=== PATIENT | male | born 1965 | race Caucasian/White ===

== ENCOUNTER → 2016-11-25 | Outpatient (CLI) | payer BC, OTHER ==
[~2016-11-25] MED LIST: LISI-729 PO; METF-383 PO; PRLSR20 PO; SIMV40TA2 PO
[2016-11-25 18:44] LABS: ALT/SGPT 46 U/L (12-78); BLOOD UREA NITROGEN 10 mg/dl (7-18); BUN/CREATININE RATIO 8.3 (10-20); CARBON DIOXIDE 23 mmol/L (21-32); CHLORIDE 104 mmol/L (98-107); GLUCOSE 222 mg/dl (70-99); POTASSIUM 4.2 mmol/L (3.5-5.1); SODIUM 137 mmol/L (136-145)
[2016-11-25 18:49] LABS: CALCIUM 9.2 mg/dl (8.5-10.1)
[2016-11-26 06:21] LABS: ESTIMATED AVERAGE GLUCOSE 212 mg/dl; HA1C FLAG Normal (Normal)
== END | disposition home or self-care (01) ==
LOC: C.LABMFLN 07:42
PROVIDERS: ATTEND Family Medicine
DX: Z00.00 Encounter for general adult medical examination without abnormal findings (principal); E11.9 Type 2 diabetes mellitus without complications; E78.00 Pure hypercholesterolemia, unspecified

== ENCOUNTER → 2017-03-21 | Outpatient (CLI) | payer BC | END | disposition home or self-care (01) | LOC: C.LABMFLN 11:38 | PROVIDERS: ATTEND Physician Assistant | DX: J02.9 Acute pharyngitis, unspecified (principal) ==

== ENCOUNTER → 2017-07-18 | Outpatient (CLI) | payer BC ==
[2017-07-18 13:45] LABS: ESTIMATED AVERAGE GLUCOSE 128 mg/dl; HA1C FLAG Normal (Normal)
[2017-07-18 13:49] LABS: ALT/SGPT 53 U/L (12-78); BLOOD UREA NITROGEN 11 mg/dl (7-18); BUN/CREATININE RATIO 12.3 (10-20); CALCIUM 8.9 mg/dl (8.5-10.1); CARBON DIOXIDE 24 mmol/L (21-32); CHLORIDE 105 mmol/L (98-107); CREATININE 0.89 mg/dl (0.60-1.40); GLUCOSE 133 mg/dl (70-99); POTASSIUM 4.3 mmol/L (3.5-5.1); SODIUM 136 mmol/L (136-145)
[2017-07-18 14:02] LABS: CREATININE RANDOM URINE 15.2 mg/dl
== END | disposition home or self-care (01) ==
LOC: C.LABMFLN 09:31
PROVIDERS: ATTEND Family Medicine
DX: E11.9 Type 2 diabetes mellitus without complications (principal)

== ENCOUNTER → 2017-08-29 | Outpatient (CLI) | payer BC | END | disposition home or self-care (01) | LOC: C.LABMFLN 09:07 | PROVIDERS: ATTEND Physician Assistant | DX: T14.8XXA Other injury of unspecified body region, initial encounter (principal); W57.XXXA Bitten or stung by nonvenomous insect and other nonvenomous arthropods, initial encounter ==

== ENCOUNTER 2020-05-11 11:06 | Observation (INO) ==
[2020-05-11] MEDS ORDERED: OPTIRAY 320 125ml IV ONE (11:27)
--- NOTE | 2020-05-11 11:27 | CT Scan Report ---
CT head/brain wo con CLINICAL HISTORY: Stroke Alert LEFT-SIDED WEAKNESS. COMPARISON STUDY: No previous studies for comparison. TECHNIQUE: Axial CT of the brain is performed from the vertex to the skull base. IV contrast was not administered for this examination. A dose lowering technique was utilized adhering to the principles of ALARA. CT DOSE: 537.48 mGy.cm FINDINGS: No intra or extra-axial mass lesions are visualized. There is no CT evidence of acute cortical infarc tion. There is no evidence of midline shift. There is no acute hemorrhage. No calvarial fractures ar e visualized. There is no evidence of pathologic ventricular dilatation. There is no evidence of acute sinusitis. There is sphenoid sinus mucosal thickening. IMPRESSION: No acute intracranial findings ACT 112: Negative or not required by law. Electronically signed by: Shreyas Guthrie M.D. 05/11/2020 11:26 AM
--- NOTE | 2020-05-11 11:34 | CT Scan Report ---
CT angio neck with con CLINICAL HISTORY: Left-sided weakness. Possible acute stroke. COMPARISON STUDY: No previous studies for comparison. TECHNIQUE: CT angiography was performed from the aortic arch to the skull base. MIP imaging was perfo rmed. The patient was scanned in a dynamic helical fashion during intravenous administration of 120 c c of Optiray 320. A dose lowering technique was utilized adhering to the principles of ALARA. CT DOSE: 697.07 mGy.cm Technique: CT angiogram of the carotid and vertebral arteries was obtained using intravenous contrast and 3-D reconstruction. NASCET criteria was utilized. Findings: The right carotid revealed no evidence of aneurysm and no evidence of dissection. There is no evidenc e of hemodynamic significant stenosis. The left carotid revealed no evidence of hemodynamic significant stenosis. There is no evidence of an eurysm. There is no evidence of dissection. There is no evidence of hemodynamically significant vertebral stenosis. There is no evidence of verte bral dissection. IMPRESSION: No evidence of hemodynamically significant carotid or vertebral artery stenosis. No evidence of disse ction. ACT 112: Negative or not required by law. Electronically signed by: Shreyas Guthrie M.D. 05/11/2020 11:33 AM
--- NOTE | 2020-05-11 11:38 | CT Scan Report ---
CT angio head w con CLINICAL HISTORY: Left-sided weakness. Possible acute stroke. TECHNIQUE: CT angiography of the head was performed in a dynamic helical fashion during intravenous a dministration of 120 cc of Optiray 320. MIP imaging was performed. A dose lowering technique was util ized adhering to the principles of ALARA. CT DOSE: COMPARISON STUDY: Noncontrast head CT dated 05/11/2020 FINDINGS: There are no lesion suspicious for aneurysm. There are no major intracranial branch occlusi ons. The dural venous sinuses appear patent. There is a hypoplastic right A1 segment. IMPRESSION: 1. Hypoplastic right A1 segment. Otherwise unremarkable CT angiography the brain ACT 112: Negative or not required by law. Electronically signed by: Shreyas Guthrie M.D. 05/11/2020 11:37 AM
--- NOTE | 2020-05-11 11:39 | Emergency Department Note ---
Impression & Plan Cerebrovascular accident, Arm weakness ED Provider Note NAME: CTAIE BURGOS Jr AGE: 55 SEX: M : 1965 ARRIVES VIA: Walk-In INFORMANT: Patient ED PROVIDER(S): Marlo Tellez DO CHIEF COMPLAINT: Left sided weakness HPI: Patient is a 55-year-old male who presents the ER for left-sided weakness. 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 He became dizzy. He started having numbness in his left foot which traveled up his leg. He then proceeded i nto his arm. He was having difficulty standing. Patient was unable to pull cheese apart and unable to hold dishes. They proceeded here. He denies any chest pain, shortness of breath, belly pain, nausea, vomiting or diarrhea. No other exacerbating or remitting factors. Denies any hematuria, hematemesis, hemoptysis recent surgery or trauma. Did have previous trauma in 2009 had a brain bleed at that time. ROS: See above HPI for pertinent positives & negatives. A total of 10 systems reviewed and were otherwise negative. PAST MEDICAL HISTORY:See Below PAST SURGICAL HISTORY:See Below FAMILY HISTORY:See Below SOCIAL HISTORY:See Below HOME MEDICATIONS:See Below ALLERGIES:See Below VITALS:See Below PHYSICAL EXAMINATION: GENERAL: Sitting up in bed, alert, disheveled. Anxious EYE EXAM: normal conjunctiva. PERRL and EOM's intact. OROPHARYNX: no exudate, no erythema, lips, buccal mucosa, and tongue normal and mucous membranes are moist NECK: supple, no nuchal rigidity, no adenopathy, non-tender LUNGS: Clear to auscultation. Normal chest wall mechanics HEART: no murmurs, S1 normal and S2 normal ABDOMEN: abdomen soft, non-tender, normo-active bowel sounds, no masses, no rebound or guarding. BACK: Back is symmetrical on inspection and there is no deformity, no midline tenderness, no CVA tenderness. SKIN: no rashes and no bruising UPPER EXTREMITIES: upper extremities are grossly normal. LOWER EXTREMITIES: No pitting edema. NEURO EXAM: Normal sensorium, cranial nerves II-XII intact, normal speech, weakness with grasp and flexion-extension of left upper extremity. Right upper extremity 5 out of 5. [id number] is intact. Decreased sensation throughout the left side. Mild weakness with flexion of the left hip. 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 On day 15 started with numbness in the left lower extremity, weakness as well as numbness and weakness in left upper extremity. Conversation IV was established blood work was obtained. Stroke alert was called. Labs showed no significant leukocytosis or anemia. INR was unremarkable. BMP was fairly unremarkable with exception of a slightly elevated glucose. Magnesium LFTs and bilirubin was unremarkable. Stroke alert was called from triage. She was taken directly to CT. When he returned to the room I evaluated him. Discussed with [facility] stroke neurology. 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 He does not believe it is worth the risk. With this in mind he was given aspirin and Plavix loading dose. Prolonged conversation with [facility] neurolog[facility]. The patient actually wanted to leave but after prolonged conversation was agreeable to staying for complete stroke work-up. Triage Nursing notes reviewed. Prior medical records reviewed Vital Signs: reviewed and remarkable for no significant abnormalities Differential diagnosis: Differential Diagnosis includes but is not limited to ischemic Stroke, hemorrhagic stroke, bells palsy, mass, neoplasm, migraine headache, seizure, subarachnoid hemorrhage, TIA, and transient global amnesia. ER treatment provided: See below Diagnostics interpreted by me: ECG: Sinus rhythm rate of 70 DWI lead III No PVCs Normal QTC Cardiac Monitoring: An order was placed for continuous cardiac monitoring. The monitor shows a rate of 74 with sinus rhythm. Laboratory studies: As stated above and show below. Imaging studies: CT head as well as angios head and neck show no acute occlusions Consultation(s): [facility] neurolog[facility] recommended aspirin Plavix as the patient declined TPA. Discussed with Dr. Janine Rojas for further evaluation. ED COURSE: Procedures: none Critical Care: I have personally spent 32 minutes of critical care time in the direct management of this patient. This includes bedside care, interpretation of diagnostic studies, and testing, discussion with consultants, patient, and family members, and other required patient management activities. This 32 minutes is in excess of all separately billable procedures. Past Med/Surg History Medical History (Updated 05/11/20 @ 14:04 by Marlo Tellez DO) Diabetes Hyperlipidemia Hypertension Surgical History No significant past surgical history Family History (Updated 12/18/19 @ 09:11 by Carolee Burroughs MA) Mother Heart disease Diabetes Hypertension Dyslipidemia Social History Smoking Status: Current every day smoker Preferred Language: [place] marital status: Current Living Situation: Spouse current occupational status: employed Feels Safe at Home: Yes Allergies Allergies Allergy/AdvReac Type Severity Reaction Status Date / Time No Known Allergies Allergy Unverified 05/11/20 11:28 Home Meds Home Medications Medication Instructions Recorded Confirmed atorvastatin 80 mg PO QAM 05/11/20 05/11/20 glipizide 10 mg PO QAM 05/11/20 05/11/20 lisinopril 20 mg PO QAM 05/11/20 05/11/20 metformin 1,000 mg PO BID 05/11/20 05/11/20 omeprazole 20 mg PO DAILY PRN 05/11/20 05/11/20 varenicline [Chantix] 1 mg PO BID 05/11/20 05/11/20 Previous Rx's Medication Instructions Recorded sildenafil 100 mg tablet 100 mg PO DAILY PRN #2 tab 02/20/20 Results & Data (ED) Vital Signs Vital Signs - 24 hr 05/11/20 11:11 05/11/20 11:13 05/11/20 11:30 Temperature 37.2 C Temperature Source Oral Pulse Rate 82 80 Pulse Rate from SpO2 Sensor 73 Respiratory Rate 20 Respiratory Effort / Characteristics Non-Labored Respiratory Depth Normal Respiratory Pattern Regular Blood Pressure 136/85 177/85 H Blood Pressure Mean 102 98 Blood Pressure Position Sitting Pulse Oximetry 96 97 98 Oxygen Delivery Method Room Air Room Air Sepsis Recent Fever Within 48 Hours No Sepsis New/Unexplained Change in Mental Status No Sepsis Action Taken by Nursing No Action Required 05/11/20 11:44 05/11/20 13:00 Temperature Temperature Source Pulse Rate 75 68 Pulse Rate from SpO2 Sensor 76 Respiratory Rate 17 13 Respiratory Effort / Characteristics Respiratory Depth Respiratory Pattern Blood Pressure 150/83 H 128/85 Blood Pressure Mean 97 96 Blood Pressure Position Pulse Oximetry 97 Oxygen Delivery Method Sepsis Recent Fever Within 48 Hours Sepsis New/Unexplained Change in Mental Status Sepsis Action Taken by Nursing Laboratory Data Result diagrams: 05/11/20 11:54 05/11/20 11:35 Lab Results 05/11/20 05/11/20 05/11/20 Range/Units 11:27 11:35 11:35 WBC Cancelled RBC Cancelled Hgb Cancelled Hct Cancelled MCV Cancelled MCH Cancelled MCHC Cancelled RDW Std Deviation Cancelled RDW Coeff of Radha Cancelled Plt Count Cancelled MPV Cancelled Absolute Nucleated RBC Cancelled Nucleated RBC % (auto) Cancelled Platelet Estimate Cancelled PT 10.6 (9.0-12.0) Seconds INR 1.0 (0.9-1.1) APTT 27.9 (21.0-31.0) Seconds PTT Ratio 1.0 Sodium (136-145) mmol/L Potassium (3.5-5.1) mmol/L Chloride (98-107) mmol/L Carbon Dioxide (21-32) mmol/L Anion Gap (3-11) BUN (7-18) mg/dl Creatinine (0.6-1.4) mg/dl Est Cr Clr Drug Dosing ml/min Est GFR ( Amer) Est GFR (Non-Af Amer) BUN/Creatinine Ratio (-20) Glucose (70-99) mg/dl POC Glucose 148 H (70-99) mg/dl Calcium (8.5-10.1) mg/dl Magnesium (1.8-2.4) mg/dl Total Bilirubin (0.2-1) mg/dl AST (15-37) U/L ALT (12-78) U/L Alkaline Phosphatase (45-117) U/L Total Protein (6.4-8.2) gm/dl Albumin (3.4-5.0) gm/dl Globulin (2.5-4.0) gm/dl Albumin/Globulin Ratio (0.9-2) 05/11/20 05/11/20 Range/Units 11:35 11:54 WBC 9.46 RBC 5.57 Hgb 17.7 Hct 50.3 MCV 90.3 MCH 31.8 MCHC 35.2 RDW Std Deviation 43.7 RDW Coeff of Radha 13.2 Plt Count 207 MPV 11.2 H Absolute Nucleated RBC Nucleated RBC % (auto) Platelet Estimate PT (9.0-12.0) Seconds INR (0.9-1.1) APTT (21.0-31.0) Seconds PTT Ratio Sodium 135 L (136-145) mmol/L Potassium 4.9 (3.5-5.1) mmol/L Chloride 105 (98-107) mmol/L Carbon Dioxide 25 (21-32) mmol/L Anion Gap 5.0 (3-11) BUN 7 (7-18) mg/dl Creatinine 0.85 (0.6-1.4) mg/dl Est Cr Clr Drug Dosing 121.1 ml/min Est GFR ( Amer) 115.3 Est GFR (Non-Af Amer) 99.5 BUN/Creatinine Ratio 8.7 L (10-20) Glucose 141 H (70-99) mg/dl POC Glucose (70-99) mg/dl Calcium 8.6 (8.5-10.1) mg/dl Magnesium 1.9 (1.8-2.4) mg/dl Total Bilirubin 0.5 (0.2-1) mg/dl AST 28 (15-37) U/L ALT 54 (12-78) U/L Alkaline Phosphatase 88 (45-117) U/L Total Protein 7.2 (6.4-8.2) gm/dl Albumin 3.6 (3.4-5.0) gm/dl Globulin 3.6 (2.5-4.0) gm/dl Albumin/Globulin Ratio 1.0 (0.9-2) Administered Medications Nicotine (Nicotine 21 Mg/24 Hr Tdsy) 21 mg TD QAM YARIEL Stop: 06/10/20 11:59 Last Admin: 05/11/20 12:19 Dose: 21 mg Documented by: [id number] Discontinued Medications Aspirin (Aspirin Chew 324 Mg) 324 mg PO NOW STA Stop: 05/11/20 11:56 Last Admin: 05/11/20 12:19 Dose: 324 mg Documented by: [id number] Clopidogrel Bisulfate (Clopidogrel Bisulfate 300 Mg Tab) 300 mg PO NOW STA Stop: 05/11/20 11:56 Last Admin: 05/11/20 12:19 Dose: 300 mg Documented by: [id number] Ioversol (Optiray 320 125ml) 120 ml IV ONCE ONE Stop: 05/11/20 11:28 Last Admin: 05/11/20 11:27 Dose: 120 ml Documented by: [id number] Discharge Plan Visit Data Chief Complaint: Stroke/CVA Symptoms Stated Complaint: LEFT SIDE NUMBNESS,DIZZY ED Provider: Marlo Tellez Discharge Problem: Cerebrovascular accident, Arm weakness Forms Stand Alone Forms: My [facility] Prescriptions Prescriptions: No Action sildenafil 100 mg tablet 100 mg PO DAILY PRN (Reason: sexual activity) Qty: 2 RF: 11 omeprazole 20 mg Capsule,Delayed Release(Dr/Ec) 20 mg PO DAILY PRN (Reason: Acid Reflux) RF: 0 Chantix 1 mg tablet 1 mg PO BID RF: 0 atorvastatin 80 mg tablet 80 mg PO QAM RF: 0 glipizide 10 mg tablet extended release 24hr 10 mg PO QAM RF: 0 lisinopril 20 mg tablet 20 mg PO QAM RF: 0 metformin 1,000 mg tablet 1,000 mg PO BID RF: 0 Discharge Problem: Cerebrovascular accident Qualifiers: CVA mechanism: unspecified Qualified Code(s): I63.9 - Cerebral infarction, unspecified
[2020-05-11] MEDS ORDERED: ASPIRIN CHEW 324 MG PO STA (11:55)
[2020-05-11] MEDS ORDERED: CLOPIDOGREL BISULFATE 300 MG TAB PO STA (11:55)
[2020-05-11 12:02] LABS: Partial Thromboplastin Time 27.9 Seconds (21.0-31.0); Prothrombin Time 10.6 Seconds (9.0-12.0)
[2020-05-11 12:19] LABS: Albumin Level 3.6 gm/dl (3.4-5.0); BUN Creatinine Ratio 8.7 (10-20); Calcium 8.6 mg/dl (8.5-10.1); Creatinine Clr Calc Pharmacy 121.1 ml/min; Est GFR (African American) 115.3; Est GFR (Non-African American) 99.5; Magnesium 1.9 mg/dl (1.8-2.4); Potassium 4.9 mmol/L (3.5-5.1)
[2020-05-11] MEDS: NICOTINE 21 MG/24 HR TDSY TD SCH (12:19)
[2020-05-11 12:22] LABS: Bilirubin,Total 0.5 mg/dl (0.2-1); Globulin 3.6 gm/dl (2.5-4.0); Total Protein 7.2 gm/dl (6.4-8.2)
[2020-05-11 12:30] LABS: Hematocrit (blood only) 50.3 % (42-52); Hemoglobin 17.7 g/dL (14.0-18.0); Mean Corpuscular Hemoglobin 31.8 pg (25-34); Mean Corpuscular Hgb Conc 35.2 g/dL (32-36); Mean Corpuscular Volume 90.3 fL (80-100); Mean Platelet Volume 11.2 fL (7.4-10.4); Platelet Count 207 K/uL (130-400); RDW Coefficient of Variation 13.2 % (11.5-14.5); RDW Standard Deviation 43.7 fL (36.4-46.3); Red Blood Count 5.57 M/uL (4.7-6.1); White Blood Count 9.46 K/uL (4.8-10.8)
--- NOTE | 2020-05-11 12:32 | XRay Report ---
XR chest 1V portable CLINICAL HISTORY: Acute stroke like symptoms COMPARISON STUDY: No previous studies for comparison. FINDINGS: The cardiac and mediastinal contours are normal. There is no evidence of focal pulmonary co nsolidation. There is no evidence of failure. No pleural effusions are visualized.[ IMPRESSION: No active disease in the chest. ACT 112: Negative or not required by law. Electronically signed by: Shreyas Guthrie M.D. 05/11/2020 12:30 PM
--- NOTE | 2020-05-11 13:47 | History & Physical Report ---
Date of Service May 11, 2020 Assessment & Plan (1) Cerebrovascular accident: 55yo C male with history of DM, HTN, HLP, tobacco use presents with acute onset left sided sensory/motor deficit, blurry vision. Patient to ER as a Code Stroke - he did not wish to receive tPA. Patient was loaded with ASA 324mg and Plavix 300mg po. Symptoms have improved but mild left sided weakness persists. -Admit to medical floor with telemetry monitoring -NIHSS and Neuro checks per protocol, dysphagia screening as needed -Check MRI brain with and without contrast -Check 2D echo -Check HgbAIC and Lipid panel -Continue home Atorvastatin 80mg po daily -ASA 81mg po daily -Plavix 75mg po daily -Smoking cessation counseling -PT/OT evaluation appreciated -Neurology consultation appreciated Present on Admission?: Yes (2) Diabetes: Type II DM, poorly controlled by last HgbA1C (9 on 10/15/19). Blood sugar sckou=655. -Hold oral agents, Metformin and Glipizide -Lantus 8u BID -ISS -Hgb A1C ordered -Target blood sugar <180 Present on Admission?: Yes (3) Hypertension: Blood pressure appropriate currently, 140/90. -Hold Lisinopril to allow for permissive HTN -Continue to monitor Present on Admission?: Yes (4) Hyperlipidemia: Chronic. -Continue Atorvastatin 80mg po daily Present on Admission?: Yes (5) Tobacco use: Patient quit smoking in the past using Varenicline but has since started smoking again. Discussed with him the importance of risk mitigation and smoking cessation to prevent another TIA/CVA. Patient reports a lot of stress in his life between work and family life. He is not sure that he can quit smoking again -Nicotine patch -Smoking cessation counseling F/E/N - Heplock. Electrolytes WNL. CC/AHA diet as tolerated Ppx - SCDs to bilateral LE, encourage ambulation with assistance as needed Code - Full per discussion with patient Dispo - Observation to medical with telemetry Present on Admission?: Yes History of Present Illness Primary Care Provider: Darius Davdi MD Trent Brunson is a 55yo C male with history of DM, HTN, HLP, current smoker presenting with left sided numbness and weakness that began acutely this AM. 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 He had numbness in his left foot that progressed to involve his left leg then arm. He was having a difficult time standing and was unable to hold things in his left hand. Upon arrival he was found to be afebrile, hypertensive at 177/85 otherwise stable. Code Stroke was called - patient refused administration of tPA. Presently still with some mild weakness in his left hand otherwise symptoms have resolved. He denies fever/chills/cough/SOB/nausea/vomiting/diarrhea/constipation. No additional complaints. No concern for Covid-19 exposure. ER Course: ASA 324mg, Plavix 300mg Allergies Allergy/AdvReac Type Severity Reaction Status Date / Time No Known Allergies Allergy Unverified 05/11/20 11:28 Home Medications Home Medications Medication Instructions Recorded Confirmed Type sildenafil 100 mg tablet 100 mg PO DAILY PRN #2 tab 02/20/20 05/11/20 Rx atorvastatin 80 mg PO QAM 05/11/20 05/11/20 History glipizide 10 mg PO QAM 05/11/20 05/11/20 History lisinopril 20 mg PO QAM 05/11/20 05/11/20 History metformin 1,000 mg PO BID 05/11/20 05/11/20 History omeprazole 20 mg PO DAILY PRN 05/11/20 05/11/20 History varenicline [Chantix] 1 mg PO BID 05/11/20 05/11/20 History Past Med/Surg History Medical History Diabetes Hyperlipidemia Hypertension Tobacco use Surgical History No significant past surgical history Family History (Updated 12/18/19 @ 09:11 by Carolee Burroughs MA) Mother Heart disease Diabetes Hypertension Dyslipidemia Social History Smoking Status: Current every day smoker Preferred Language: Latvian marital status: Current Living Situation: Spouse current occupational status: employed Feels Safe at Home: Yes Review of Systems Review of Systems: All systems reviewed & are unremarkable except as noted in HPI & below Physical Exam Physical Exam: General: patient resting comfortably, NAD, non-toxic in appearance, AA&O x 4 Skin: warm, dry, intact, no rashes or lesions HEENT: NC/AT, PERRL, EOMI, anicteric sclera, conjunctiva without injection, external ear normal to inspection and nontender, nares patent, moist mucus membranes, poor dentition, no oropharyngeal lesions, neck supple, trachea midline, no LAD, no thyromegaly, no JVD Heart: +S1/S2, regular, no m/r/g Lungs: equal air entry bilaterally, no rales/rhonchi/wheezes Abd: +BS, soft, NT/ND, no masses/organomegaly/ascites Ext: warm, 2+ pulses in UE/LE bilaterally, no clubbing/cyanosis or edema Neuro: Patient AA&O x 4, speech clear, no facial droop or tongue deviation, sensation to light touch intact with exception of diminished sensation to light touch in CN - V1 distribution, MS 5/5 in LUE/LLE/RLE, Diminished punch press setter strength of LUE 4/5, forearm flexion/extension 4/5 and arm adduction/abduction 4/5. LLE 4+/5, coordination intact, gait intact Results & Data Results & Data ([facility]) Vital Signs (Past 12 Hours) Vital Signs Temp Pulse Resp BP Pulse Ox 05/11/20 13:00 68 13 128/85 05/11/20 11:44 75 17 150/83 H 97 05/11/20 11:30 80 177/85 H 98 05/11/20 11:13 97 05/11/20 11:11 37.2 C 82 20 136/85 96 Laboratory Results Lab Results 05/11/20 05/11/20 05/11/20 Range/Units 11:27 11:35 11:35 WBC Cancelled RBC Cancelled Hgb Cancelled Hct Cancelled MCV Cancelled MCH Cancelled MCHC Cancelled RDW Std Deviation Cancelled RDW Coeff of Radha Cancelled Plt Count Cancelled MPV Cancelled Absolute Nucleated RBC Cancelled Nucleated RBC % (auto) Cancelled Platelet Estimate Cancelled PT 10.6 (9.0-12.0) Seconds INR 1.0 (0.9-1.1) APTT 27.9 (21.0-31.0) Seconds PTT Ratio 1.0 Sodium (136-145) mmol/L Potassium (3.5-5.1) mmol/L Chloride (98-107) mmol/L Carbon Dioxide (21-32) mmol/L Anion Gap (3-11) BUN (7-18) mg/dl Creatinine (0.6-1.4) mg/dl Est Cr Clr Drug Dosing ml/min Est GFR ( Amer) Est GFR (Non-Af Amer) BUN/Creatinine Ratio (10-20) Glucose (70-99) mg/dl POC Glucose 148 H (70-99) mg/dl Calcium (8.5-10.1) mg/dl Magnesium (1.8-2.4) mg/dl Total Bilirubin (0.2-1) mg/dl AST (15-37) U/L ALT (12-78) U/L Alkaline Phosphatase (45-117) U/L Total Protein (6.4-8.2) gm/dl Albumin (3.4-5.0) gm/dl Globulin (2.5-4.0) gm/dl Albumin/Globulin Ratio (0.9-2) 05/11/20 05/11/20 Range/Units 11:35 11:54 WBC 9.46 RBC 5.57 Hgb 17.7 Hct 50.3 MCV 90.3 MCH 31.8 MCHC 35.2 RDW Std Deviation 43.7 RDW Coeff of Radha 13.2 Plt Count 207 MPV 11.2 H Absolute Nucleated RBC Nucleated RBC % (auto) Platelet Estimate PT (9.0-12.0) Seconds INR (0.9-1.1) APTT (21.0-31.0) Seconds PTT Ratio Sodium 135 L (136-145) mmol/L Potassium 4.9 (3.5-5.1) mmol/L Chloride 105 (98-107) mmol/L Carbon Dioxide 25 (21-32) mmol/L Anion Gap 5.0 (3-11) BUN 7 (7-18) mg/dl Creatinine 0.85 (0.6-1.4) mg/dl Est Cr Clr Drug Dosing 121.1 ml/min Est GFR ( Amer) 115.3 Est GFR (Non-Af Amer) 99.5 BUN/Creatinine Ratio 8.7 L (10-20) Glucose 141 H (70-99) mg/dl POC Glucose (70-99) mg/dl Calcium 8.6 (8.5-10.1) mg/dl Magnesium 1.9 (1.8-2.4) mg/dl Total Bilirubin 0.5 (0.2-1) mg/dl AST 28 (15-37) U/L ALT 54 (12-78) U/L Alkaline Phosphatase 88 (45-117) U/L Total Protein 7.2 (6.4-8.2) gm/dl Albumin 3.6 (3.4-5.0) gm/dl Globulin 3.6 (2.5-4.0) gm/dl Albumin/Globulin Ratio 1.0 (0.9-2) Diagnostic Findings CT angio neck with con CLINICAL HISTORY: Left-sided weakness. Possible acute stroke. COMPARISON STUDY: No previous studies for comparison. TECHNIQUE: CT angiography was performed from the aortic arch to the skull base. MIP imaging was performed. The patient was scanned in a dynamic helical fashion during intravenous administration of 120 cc of Optiray 320. A dose lowering technique was utilized adhering to the principles of ALARA. CT DOSE: 697.07 mGy.cm Technique: CT angiogram of the carotid and vertebral arteries was obtained using intravenous contrast and 3-D reconstruction. NASCET criteria was utilized. Findings: The right carotid revealed no evidence of aneurysm and no evidence of dissection. There is no evidence of hemodynamic significant stenosis. The left carotid revealed no evidence of hemodynamic significant stenosis. There is no evidence of aneurysm. There is no evidence of dissection. There is no evidence of hemodynamically significant vertebral stenosis. There is no evidence of vertebral dissection. IMPRESSION: No evidence of hemodynamically significant carotid or vertebral artery stenosis. No evidence of dissection. ACT 112: Negative or not required by law. Electronically signed by: Shreyas Guthrie M.D. 05/11/2020 11:33 AM Dictated: 05/11/20 1131 Transcribed: 05/11/[address] angio head w con CLINICAL HISTORY: Left-sided weakness. Possible acute stroke. TECHNIQUE: CT angiography of the head was performed in a dynamic helical fashion during intravenous administration of 120 cc of Optiray 320. MIP imaging was performed. A dose lowering technique was utilized adhering to the principles of ALARA. CT DOSE: COMPARISON STUDY: Noncontrast head CT dated 05/11/2020 FINDINGS: There are no lesion suspicious for aneurysm. There are no major intracranial branch occlusions. The dural venous sinuses appear patent. There is a hypoplastic right A1 segment. IMPRESSION: 1. Hypoplastic right A1 segment. Otherwise unremarkable CT angiography the brain ACT 112: Negative or not required by law. Electronically signed by: Shreyas Guthrie M.D. 05/11/2020 11:37 AM Dictated: 05/11/20 1133 Transcribed: 05/11/[address] head/brain wo con CLINICAL HISTORY: Stroke Alert LEFT-SIDED WEAKNESS. COMPARISON STUDY: No previous studies for comparison. TECHNIQUE: Axial CT of the brain is performed from the vertex to the skull base. IV contrast was not administered for this examination. A dose lowering technique was utilized adhering to the principles of ALARA. CT DOSE: 537.48 mGy.cm FINDINGS: No intra or extra-axial mass lesions are visualized. There is no CT evidence of acute cortical infarction. There is no evidence of midline shift. There is no acute hemorrhage. No calvarial fractures are visualized. There is no evidence of pathologic ventricular dilatation. There is no evidence of acute sinusitis. There is sphenoid sinus mucosal thickening. IMPRESSION: No acute intracranial findings ACT 112: Negative or not required by law. Electronically signed by: Shreyas Guthrie M.D. 05/11/2020 11:26 AM Dictated: 05/11/20 1124 Transcribed: 05/11/20 1124 XR chest 1V portable CLINICAL HISTORY: Acute stroke like symptoms COMPARISON STUDY: No previous studies for comparison. FINDINGS: The cardiac and mediastinal contours are normal. There is no evidence of focal pulmonary consolidation. There is no evidence of failure. No pleural effusions are visualized.[ IMPRESSION: No active disease in the chest. ACT 112: Negative or not required by law. Electronically signed by: Shreyas Guthrie M.D. 05/11/2020 12:30 PM Dictated: 05/11/20 1230 Transcribed: 05/11/20 1230 ECG Additional Comments: EKG wtih NSR at 70bpm, normal axis, LR=751, QRS=98, FPx=555, no acute ischemic changes, no evidence of LVH Code Status & VTE Plan Code Status FULL PG Care Time/CCT Total # of Minutes Spent Total Time Spent with Patient: Total time spent is greater than 50% in coordination of care (as documented) at patient's floor/unit and/or counseling patient: Coding Level of Care Code 67611 OBS Care - Level 3 Diagnoses Cerebrovascular accident I63.9 CVA mechanism: unspecified Diabetes E11.9 Diabetes mellitus type: type 2 Diabetes mellitus long term care pharmacist insulin use: without long term care pharmacist use Diabetes mellitus complication status: without complication Hypertension I10 Hypertension type: essential hypertension Hyperlipidemia E78.5 Hyperlipidemia type: unspecified Tobacco use Z72.0 (1) Cerebrovascular accident CVA mechanism: unspecified Qualified Code(s): I63.9 - Cerebral infarction, unspecified (2) Diabetes Diabetes mellitus type: type 2 Diabetes mellitus long term care pharmacist insulin use: without long-term use Diabetes mellitus complication status: without complication Qualified Code(s): E11.9 - Type 2 diabetes mellitus without complications (3) Hypertension Hypertension type: essential hypertension Qualified Code(s): I10 - Essential (primary) hypertension (4) Hyperlipidemia Hyperlipidemia type: unspecified Qualified Code(s): E78.5 - Hyperlipidemia, unspecified
[2020-05-11] MEDS ORDERED: CARBOHYDRATES FOR HYPOGLYCEMIA PO PRN (15:15)
[2020-05-11] MEDS ORDERED: GLUCAGON FOR INJ 1 MG VIAL SQ PRN (15:15)
[2020-05-11] MEDS ORDERED: ACETAMINOPHEN 325 MG TAB PO PRN (15:15)
[2020-05-11] MEDS ORDERED: GLUCOSE 40% GEL 15 GM TUBE PO PRN (15:15)
[2020-05-11] MEDS ORDERED: DEXTROSE 50% 50 ML SYRINGE IV PRN (15:15)
[2020-05-11] MEDS ORDERED: GLUCOSE 10 TABS/TUBE PO PRN (15:15)
[2020-05-11] MEDS ORDERED: GADOXETATE DISODIUM IV ONE (16:50)
[2020-05-11] MEDS ORDERED: GADOBUTROL 65ML VIAL IV ONE (16:52)
--- NOTE | 2020-05-11 17:03 | Magnetic Resonance Report ---
MRI OF THE BRAIN WITHOUT AND WITH IV CONTRAST CLINICAL HISTORY: Left-sided weakness. Possible acute stroke. Negative noncontrast head CT. COMPARISON STUDY: No previous studies for comparison. TECHNIQUE: MRI of the brain was performed from the vertex to the skull base utilizing various T1 and T2 weighted sequences. Following the IV administration of 12 mL of Gadavist contrast, additional enha nced images were obtained. FINDINGS: Sagittal T1, axial diffusion, proton density and T2 weighted axial, coronal FLAIR, and pre and post a xial T1-weighted images were acquired. These were supplemented with post gadolinium coronal T1 weight ed images. No intra or extra-axial mass lesions are visualized. Axial diffusion-weighted images reveal no evidence of acute or subacute infarction. There is no evidence of ventricular dilatation. Proton density T2-weighted and FLAIR images reveal scattered foci of increased T2 signal within the w mauricio matter, likely on a small vessel basis. There are no abnormal flow voids. There is no evidence of pathologic enhancement. IMPRESSION: 1. No acute intracranial findings 2. No evidence of acute or subacute infarction 3. No evidence of intracranial mass 4. Scattered nonspecific foci of increased T2 signal within the white matter, statistically on a smal l vessel basis. ACT 112: Negative or not required by law. Electronically signed by: Shreyas Guthrie M.D. 05/11/2020 5:02 PM
[2020-05-11] MEDS: INSULIN ASPART 100 UNITS/ML 3 ML PEN SC SCH ×2 (17:30→21:37)
[2020-05-11] MEDS: INSULIN GLARGINE SOLOSTAR 100 UNITS/ML 3 ML PEN SC SCH (21:37)
[2020-05-12 08:28] LABS: Chol HDL Ratio 5; Cholesterol 129 mg/dl (0-200); HDL Cholesterol 26 mg/dl; LDL Cholesterol Calculated 74 mg/dl; Triglycerides 145 mg/dl (0-150); VLDL Cholesterol 29 mg/dl
[2020-05-12] MEDS: INSULIN GLARGINE SOLOSTAR 100 UNITS/ML 3 ML PEN SC SCH (08:41)
[2020-05-12] MEDS: INSULIN ASPART 100 UNITS/ML 3 ML PEN SC SCH ×2 (08:42→12:04)
[2020-05-12] MEDS ORDERED: ATORVASTATIN 40 MG TAB PO SCH (09:00)
[2020-05-12] MEDS ORDERED: CLOPIDOGREL BISULFATE 75 MG TAB PO SCH (09:00)
[2020-05-12] MEDS ORDERED: ASPIRIN 81 MG ECTAB PO SCH (09:00)
[2020-05-12] MEDS: NICOTINE 21 MG/24 HR TDSY TD SCH (09:40)
[2020-05-12 09:56] LABS: Estimated Average Glucose 183 mg/dl
--- NOTE | 2020-05-12 11:49 | Discharge Summary ---
Date of Service May 12, 2020 Admission HPI Per Admitting Provider Trent Brunson is a 55yo C male with history of DM, HTN, HLP, current smoker presenting with left sided numbness and weakness that began acutely this AM. 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 He had numbness in his left foot that progressed to involve his left leg then arm. He was having a difficult time standing and was unable to hold things in his left hand. Upon arrival he was found to be afebrile, hypertensive at 177/85 otherwise stable. Code Stroke was called - patient refused administration of tPA. Presently still with some mild weakness in his left hand otherwise symptoms have resolved. He denies fever/chills/cough/SOB/nausea/vomiting/diarrhea/constipation. No additional complaints. No concern for Covid-19 exposure. ER Course: ASA 324mg, Plavix 300mg Principal Diagnosis Suspected TIA vs seizure Discharge Exam Constitutional WD/WN, vitals as above Eyes PERRL, conjunctivae normal, anicteric sclerae ENMT external ear and nose normal, oropharynx normal Neck trachea midline, no thyromegaly Respiratory normal respiratory effort, lungs clear to auscultation Cardiovascular RRR, no murmur, no edema Chest (Breasts) Chest: normal inspection of chest Gastrointestinal (Abdomen) normal bowel sounds, soft, nontender, no hepatosplenomegaly Musculoskeletal Extremities: extremities normal to inspection; no cyanosis and no clubbing Skin no rashes, warm and dry Neurologic PERRL, EOMI, accommodation nl, no face palsy, no dysarthria CN's II-XI intact bilaterally, deep tendon reflexes 2+ bilaterally, moves all extremities and awake; no focal motor deficits Motor/Sensory: no sensory deficit Coordination: normal [id number] test and normal [id number] test Psychiatric A+Ox3, euthymic affect Lymphatic no lymphedema Discharge Data Allergies Allergy/AdvReac Type Severity Reaction Status Date / Time No Known Allergies Allergy Unverified 05/11/20 11:28 Consultations 05/11/20 11:55 ED Decision to Admit Stat 05/11/20 15:15 Consult Neurology Routine Ordered Studies 05/11/20 11:13 CT head/brain wo con Stat 05/11/20 11:20 CT angio head w con Stat CT angio neck with con Stat 05/11/20 15:15 MR brain wo/w con Routine ECHO-normal CXR Hospital Course (1) Cerebrovascular accident: 55yo C male with history of DM, HTN, HLP, tobacco use presents with acute onset left sided sensory/motor deficit, blurry vision. Patient to ER as a Code Stroke - he did not wish to receive tPA. Patient was loaded with ASA 324mg and Plavix 300mg po. Weakness and numbness completely resolved Acute CVA RULED OUT -Admitted to medical floor with telemetry monitoring-no arrhythmias MRI brain with and without contrast negative for CVA -ECHO negative, no interatrial shunt - HgbAIC pending at time of patient leaving AMA -Continue home Atorvastatin 80mg po daily -added ASA 81mg po daily -received one dose Plavix 75mg po -Smoking cessation counseling -PT/OT evaluation appreciated -Neurology consultation not completed before pt left AMA Suspect possible TIA vs seizure as per my d/w Neurology on the phone prior to patient demanding to leave the hospital before completing workup. Neurology suggested UDS and EEG which pt declined. He also left prior to ECHO result coming back. Strongly encouraged to stay to complete workup LEFT AMA (2) Diabetes: Type II DM, poorly controlled by last HgbA1C (9 on 10/15/19). continue home meds, f/u PCP -Hgb A1C pending (3) Hypertension: Blood pressure stable -continue Lisinopril (4) Hyperlipidemia: Chronic. -Continue Atorvastatin 80mg po daily (5) Tobacco use: Patient quit smoking in the past using Varenicline but has since started smoking again. Discussed with him the importance of risk mitigation and smoking cessation to prevent another TIA/CVA. Patient reports a lot of stress in his life between work and family life. He is not sure that he can quit smoking again -Nicotine patch recommended but he states they cause adverse side effects -Smoking cessation counseling Dispo - pt left AMA prior to completing workup Total Time Total Time Spent Total Time Spent (In Minutes): 35 min Total Time Includes: Examination of the Patient, Discharge Planning, Medication Reconciliation and Communication With Other Providers Discharge Plan Discharge Items Patient Disposition: Against Medical Advice Reason For Visit: CVA/TIA Discharge Diagnosis: TIA vs seizure Condition on Discharge: Good Activity: Resume your previous activity Non-emergency contact: Primary Care Provider and Neurologist Call non-emergency contact if: you have any medication questions and your symptoms worsen Follow-up/Referrals: Darius David MD [Primary Care Provider] - 05/16/20 10:30 am Anastasiya Thornton MD [Physician] - Diet: Carb Consistent or DM2 and Low Sodium (2gm) Addtl Attending Provider Instructions: You left against medical advice prior to completing studies recommended by Neurology. Pending Studies at Discharge: Yes Studies:: ECHO Stand-Alone Forms: My [employer], Smoking Cessation Skilled Items Patient informed of condition?: Yes DNR: No Discharge Prognosis: Stable Medications and DC Order Prescriptions: New aspirin 81 mg Tablet,Delayed Release (Dr/Ec) 81 mg PO QAM Qty: 30 RF: 0 Continued omeprazole 20 mg Capsule,Delayed Release(Dr/Ec) 20 mg PO DAILY PRN (Reason: Acid Reflux) RF: 0 Chantix 1 mg tablet 1 mg PO BID RF: 0 atorvastatin 80 mg tablet 80 mg PO QAM RF: 0 glipizide 10 mg tablet extended release 24hr 10 mg PO QAM RF: 0 lisinopril 20 mg tablet 20 mg PO QAM RF: 0 metformin 1,000 mg tablet 1,000 mg PO BID RF: 0 Discontinued sildenafil 100 mg tablet 100 mg PO DAILY PRN (Reason: sexual activity) Qty: 2 RF: 11 Discharge Orders: Left Against Medical Advice (Routine); Ordered 05/12/20 Ordered By: Anna Magana Admission Data Admit Date/Time: 05/11/20 13:47 Attending Provider: Anna Magana Admit Provider: Linda Rojas Primary Care Provider: Darius David Other Providers: Linda Rojas ; Victor Manuel Swartz Other Interventions: Discharge Summary Assessment (RN) Last Done: 05/12/20 12:20 Coding Level of Care Code 92041 OBS Care - Discharge Diagnoses Cerebrovascular accident I63.9 CVA mechanism: unspecified Diabetes E11.9 Diabetes mellitus complication status: without complication Diabetes mellitus manager terminal insulin use: without manager terminal use Diabetes mellitus type: type 2 Hypertension I10 Hypertension type: essential hypertension Hyperlipidemia E78.5 Hyperlipidemia type: unspecified Tobacco use Z72.0
--- NOTE | 2020-05-12 11:53 | XCELERA ---
[id number]
--- NOTE | 2020-05-12 16:43 | Electrocardiogram Report ---
Test Reason : Blood Pressure : / mmHG Vent. Rate : 070 BPM Atrial Rate : 070 BPM P-R Int : 134 ms QRS Dur : 098 ms QT Int : 406 ms P-R-T Axes : 007 078 030 degrees QTc Int : 438 ms Normal sinus rhythm with sinus arrhythmia Normal ECG No previous ECGs available Confirmed by Joaquín Ocasio ([id number]) on 05/12/2020 4:43:21 PM Referred By: REFERRED SELF Confirmed By:Duglas Ocasio
--- NOTE | 2020-05-20 08:34 | Coding Query ---
CODING QUERY To promote full compliance with coding requirements relating to patient care, provider participation is requested in all cases of cpc coder uncertainty. Please assist us with the question(s) below: Coding Question(s): Please provide further clarification regarding the presence of CVA during this admission. Please remember that we are unable to code a diagnosis of rule out, probable, possible, questionable or suspected. ___ CVA was present during this admission _x___ CVA was not present during this admission ____ Other, please clarify - Physician's Response(s): Thank you Alisia Cox Principal Diagnosis: "that condition established after study, to be chiefly responsible for occasioning the admission of the patient to the hospital for care." Co-Existing Principal Diagnosis: "when two or more diagnoses equally meet the criteria for principal diagnosis as determined by the circumstances of admission, diagnostic work up, and/or therapy provided, and the Alphabetic Index, Tabular List, or another coding guideline does not provide sequencing direction, any one of the diagnoses may be sequenced first." "When the physician has documented what appears to be a current diagnosis in the body of the record, but has not included the diagnosis in the final diagnostic statement, the physician should be asked whether the diagnosis should be added." (Source Coding [facility] 2 QTR90. p3-4) YVONNE
== END 2020-05-12 14:43 | disposition left against medical advice (07) ==
LOC: 2N 11:06 → ED 11:06 → SUATTDRO 13:47 → 2N 14:49